=== PATIENT | male | born 1960 | race Caucasian/White ===

== ENCOUNTER → 2018-03-25 | Outpatient (CLI) | payer OTHER | LOC: FIMAGING 07:49 | PROVIDERS: ATTEND Radiology Diagnostic Radiology | DX: I83.92 Asymptomatic varicose veins of left lower extremity (principal) ==

== ENCOUNTER → 2018-04-09 | Outpatient (CLI) | payer OTHER | LOC: FIMAGING 11:42 | PROVIDERS: ATTEND Family Medicine | DX: Z13.6 Encounter for screening for cardiovascular disorders (principal); I77.89 Other specified disorders of arteries and arterioles; Z82.49 Family history of ischemic heart disease and other diseases of the circulatory system ==

== ENCOUNTER 2018-08-21 07:53 | Day surgery (SDC) | payer OTHER ==
[2018-08-21] MEDS ORDERED: NS 1,000 ML IV ONE (08:02)
[2018-08-21] MEDS ORDERED: NALOXONE HCL 0.4 MG/ML INJ IVP PRN (08:02)
[2018-08-21] MEDS ORDERED: fentaNYL 100 MCG/2 ML INJ IVP PRN (08:02)
[2018-08-21] MEDS ORDERED: FLUMAZENIL 0.5 MG/5 ML MDV IVP PRN (08:02)
[2018-08-21] MEDS ORDERED: MIDAZOLAM 2 MG/2 ML VIAL IVP PRN (08:02)
[2018-08-21] MEDS ORDERED: ONDANSETRON 4 MG/2 ML VIAL IVP ONE (08:02)
[2018-08-21] MEDS ORDERED: ceFAZolin 2 GM/DEXTROSE 100 ML IV ONE (08:02)
[2018-08-21] MEDS ORDERED: SODIUM TETRADECYL SULFATE 3% 2 ML VIAL IV ONE (08:19)
[2018-08-21] MEDS ORDERED: NA BICARBONATE 50 MEQ/50 ML VIAL ONE (08:19)
[2018-08-21] MEDS ORDERED: LIDO/EPI 1% **for epidural** 30 ML SDV ONE (08:19)
--- NOTE | 2018-08-21 08:50 | PDPROPOC ---
Sedation Plan of Care Sedation Plan of Care: vital signs stable, mental status noted, patient educated of risks, benefits, alternatives, patient can tolerate sedation ASA Classification: ASA 1 Planned drugs: fentanyl, midazolam Mallampati Score: Class 1 Mallampati Reference Image: Patient passed 3-3-2 rule?: Yes
--- NOTE | 2018-08-21 08:52 | PDGENHP ---
History & Physical Chief Complaint: LLE VARICOSE VEINS History of Present Illness: VERY ACTIVE PATIENT. LARGE BULDY VARICOSE VEINS Pertinent Past, Social, Family History: MCA REPAIR; VARICOSE VEINS X 25 YRS Relevant Physical Exam: LARGE ROPEY VEINS Cardiorespiratory Assessment: RRR, CTA
[2018-08-21] MEDS ORDERED: ONDANSETRON DISINTEGRATING 4 MG TAB PO PRN (10:42)
[2018-08-21] MEDS ORDERED: HYDROCODONE/APAP 5/325 TAB PO PRN (10:42)
[2018-08-21] MEDS ORDERED: ONDANSETRON 4 MG/2 ML VIAL IVP PRN (10:42)
[2018-08-21] MEDS ORDERED: IBUPROFEN 200 MG TAB PO ONE (10:42)
[2018-08-21] MEDS ORDERED: NS 1,000 ML IV SCH (10:45)
--- NOTE | 2018-08-21 10:47 | PDRADPN ---
Radiology Procedure Note Date of Procedure: 08/21/18 Radiologist: Mary Greco Anesthesia: IV Sedation Pre-op Diagnosis: LLE VARICOSE VEINS Post-op Diagnosis: SAME Indication: PAIN AND SWELLING Procedure: LASER, SCLEROTHERAPY, PHLEBECTOMY Finding(s): LARGE ROPEY VARICOSE VEINS REMOVED. Inf/Abcess present in the surg proc area at time of surgery?: No
[2018-08-21 13:43] VITALS: BP 100/72
== END 2018-08-21 13:44 | disposition home or self-care (01) ==
LOC: FIMAGING 07:53
PROVIDERS: ATTEND Radiology Diagnostic Radiology
DX: I83.812 Varicose veins of left lower extremity with pain (principal); I83.892 Varicose veins of left lower extremity with other complications; M79.89 Other specified soft tissue disorders
CPT/HCPCS: J0690; J2250; J2310; J3010

== ENCOUNTER → 2018-09-03 | Outpatient (CLI) | payer OTHER | LOC: FIMAGING 11:11 ==